=== PATIENT | male | born 1990 | race Caucasian/White ===

== ENCOUNTER 2016-06-11 23:32 | Emergency (ER) | payer OTHER, MEDICAID | END 2016-06-12 04:34 | disposition home or self-care (01) | DX: M79.662 Pain in left lower leg (principal); F17.200 Nicotine dependence, unspecified, uncomplicated; Z79.82 Long term (current) use of aspirin ==

== ENCOUNTER 2016-06-12 | Emergency (ER) | payer OTHER, MEDICAID | END 2016-06-12 19:30 | disposition left against medical advice (07) | DX: Z53.21 Procedure and treatment not carried out due to patient leaving prior to being seen by health care provider (principal) ==

== ENCOUNTER 2016-09-01 20:30 | Emergency (ER) | payer OTHER, MEDICAID | END 2016-09-01 23:04 | disposition home or self-care (01) | DX: I10 Essential (primary) hypertension (principal); R06.00 Dyspnea, unspecified; F17.200 Nicotine dependence, unspecified, uncomplicated; Z79.82 Long term (current) use of aspirin ==

== ENCOUNTER 2016-09-09 22:02 | Outpatient (CLI) | payer OTHER, MEDICAID | END 2016-09-09 22:03 | disposition home or self-care (01) | DX: R07.89 Other chest pain (principal) ==

== ENCOUNTER 2016-09-09 22:52 | Emergency (ER) | payer OTHER, MEDICAID ==
[2016-09-09] MEDS ORDERED: LORazepam 0.5 MG TABLET ONE (23:26)
[2016-09-09] MEDS: LORazepam 0.5 MG TABLET PO STA (23:28)
--- NOTE | 2016-09-09 23:31 | ED Physician Documentation ---
History of Present Illness - Stated complaint Stated Complaint: CHEST PX - Chief complaint Chief Complaint: Cardiac - History obtained from History obtained from: Patient, Friend - History of Present Illness Timing: How many days ago (3) - Additonal information Additional information: 26 y/o male is a heavy regular drinker and he stopped about 3 days ago. He is having trouble with a markedly elevated blood pressure. Review of Systems Constitutional: denies: Fever, Chills, Myalgias Eyes: denies: Decreased vision Ears: denies: Ear pain Nose: reports: Rhinorrhea / runny nose, Congestion Throat: denies: Dental pain / toothache Cardiac: denies: Chest pain / pressure, Palpitations Respiratory: reports: Cough (daily in am) GI: denies: Abdominal Pain, Nausea, Vomiting : denies: Dysuria, Frequency Skin: denies: Rash Musculoskeletal: denies: Neck pain, Back pain, Extremity pain Neurologic: reports: Headache. denies: Generalized weakness, Focal weakness, Numbness, Confused, Altered mental status, Head injury, LOC PD PAST MEDICAL HISTORY - Past Medical History Cardiovascular: Angina, Other Respiratory: None Neuro: None Endocrine/Autoimmune: None GI: None : None HEENT: Chronic vision loss Psych: None Musculoskeletal: None, Other Derm: None Other Past Medical History: costalcondritis - Past Surgical History Past Surgical History: No - Present Medications Home Medications: Ambulatory Orders Medication Instructions Recorded Confirmed Ibuprofen [Motrin] 400 mg PO Q6H PRN #30 tablet 03/25/16 09/09/16 Lorazepam [Ativan] 1 mg PO Q6HR PRN #20 tablet 09/10/16 - Allergies Allergies/Adverse Reactions: Allergies Allergy/AdvReac Type Severity Reaction Status Date / Time No Known Drug Allergies Allergy Verified 06/11/16 23:51 - Social History Does the pt smoke?: No Smoking Status: Smoker current status unk Does the pt drink ETOH?: Yes Does the pt have substance abuse?: No - Immunizations Immunizations are current?: No - POLST Patient has POLST: No PD ED PE NORMAL - Vitals Vital signs reviewed: Yes (hypertensive ) - General General: Alert and oriented X 3, No acute distress, Well developed/nourished - HEENT HEENT: Atraumatic, PERRL, EOMI, Other (Both TM's are inflammed with rounding of the landmarks. 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 There is clearly sinus but there is some baseline "shaking" ) - Labs Labs: Laboratory Tests 09/09/16 09/09/16 09/09/16 23:25 23:56 23:56 WBC 6.5 RBC 4.24 L Hgb 13.5 L Hct 38.7 L MCV 91.1 MCH 31.8 H MCHC 34.9 RDW 12.8 Plt Count 197 MPV 8.2 Neut # 3.9 Lymph # 1.6 [place] # 0.7 Eos # 0.2 Baso # 0.2 H Absolute Nucleated RBC 0.00 Nucleated RBCs 0.1 Sodium 135 Potassium 3.8 Chloride 101 Carbon Dioxide 24 Anion Gap 10.0 BUN 18 Creatinine 0.8 Estimated GFR (MDRD) 117 Glucose 102 H Calcium 8.8 Total Bilirubin 0.6 AST 52 H ALT 58 Alkaline Phosphatase 55 Troponin I Total Protein 7.8 Albumin 4.4 Globulin 3.4 Albumin/Globulin Ratio 1.3 Lipase 18 L Ethyl Alcohol < 5.0 09/09/16 23:56 WBC RBC Hgb Hct MCV MCH MCHC RDW Plt Count MPV Neut # Lymph # [place] # Eos # Baso # Absolute Nucleated RBC Nucleated RBCs Sodium Potassium Chloride Carbon Dioxide Anion Gap BUN Creatinine Estimated GFR (MDRD) Glucose Calcium Total Bilirubin AST ALT Alkaline Phosphatase Troponin I < 0.04 Total Protein Albumin Globulin Albumin/Globulin Ratio Lipase Ethyl Alcohol Procedures - IVC sono (time) 2320 Bedside IVC sono: IVC measures (cm) (1.76), Euvolemia PD MEDICAL DECISION MAKING - ED course Complexity details: reviewed old records, reviewed results, re-evaluated patient , considered differential, d/w patient, d/w family ED course: 26 y/o male with concerns about hypertension is going through alcohol withdrawal , has marked hypertension and he is given PO ativan. He has history that all adds up to regular alcohol use resulting in elevated blood pressure related to withdrawal. He does not have the shakes and looking at him in the ED this evening he looks normal with a high blood pressure. He does have daily symptoms when he returns from work with flush face and feeling uneasy and having symptoms resolve with drinking. He is wondering if his blood pressure elevation is just something he needs to treat. His blood pressure improves dramatically with the ativan and I have discussed with him the nature of alcohol withdrawal and timing of symptoms. He is still hypertensive and I have discussed with this 26 y/o male lifestyle modifications prior to treatment. Departure - Departure Disposition: 01 Home, Self Care Clinical Impression: Alcohol withdrawal Qualifiers: Complication of substance-induced condition: uncomplicated Qualified Code(s): F10.230 - Alcohol dependence with withdrawal, uncomplicated Hypertension Qualifiers: Hypertension type: other secondary hypertension Qualified Code(s): I15.8 - Other secondary hypertension Instructions: ED Withdrawal Alcohol, ED Hypertension Poss Follow-Up: Joe Renteria MD [Primary Care Provider] - Prescriptions: Lorazepam [Ativan] 1 mg PO Q6HR PRN #20 tablet PRN Reason: aggitation/withdrawal symptoms
[2016-09-10 00:12] LABS: BASOPHILS # (AUTO) 0.2 10^3/uL (0.0-0.1); BASOPHILS % (AUTO) 3.4 %; EOSINOPHILS # (AUTO) 0.2 10^3/uL (0.0-0.7); EOSINOPHILS % (AUTO) 2.4 %; HCT - HEMATOCRIT 38.7 % (42.0-52.0); HGB - HEMOGLOBIN 13.5 g/dL (14.0-18.0); LYMPHOCYTES # (AUTO) 1.6 10^3/uL (1.5-3.5); LYMPHOCYTES % (AUTO) 23.7 %; MEAN CORPUSCULAR HEMOGLOBIN 31.8 pg (27.0-31.0); MEAN CORPUSCULAR HGB CONC 34.9 g/dL (32.0-36.0); MEAN CORPUSCULAR VOLUME 91.1 fL (80.0-94.0); MEAN PLATELET VOLUME 8.2 fL (7.4-11.4); MONOCYTES # (AUTO) 0.7 10^3/uL (0.0-1.0); MONOCYTES % (AUTO) 10.6 %; NEUTROPHILS # (AUTO) 3.9 10^3/uL (1.5-6.6); NEUTROPHILS % (AUTO) 59.9 %; NUCLEATED RED BLOOD CELLS AUTO 0.1 /100WBC; RED BLOOD COUNT 4.24 10^6/uL (4.70-6.10); RED CELL DISTRIBUTION WIDTH 12.8 % (12.0-15.0); UNCORRECTED WHITE BLOOD COUNT 6.5 x10^3/uL; WHITE BLOOD COUNT 6.5 x10^3/uL (4.8-10.8)
[2016-09-10 00:15] LABS: ALBUMIN/GLOBULIN RATIO 1.3 (1.0-2.2); BILIRUBIN,TOTAL 0.6 mg/dL (0.2-1.0); CALCIUM 8.8 mg/dL (8.5-10.3); CREATININE 0.8 mg/dL (0.6-1.2); POTASSIUM 3.8 mmol/L (3.5-5.0); TOTAL PROTEIN 7.8 g/dL (6.7-8.2)
[2016-09-10 00:48] VITALS: BP 155/86
== END 2016-09-10 00:48 | disposition home or self-care (01) ==
LOC: ED 22:52
DX: F10.239 Alcohol dependence with withdrawal, unspecified (principal); I15.8 Other secondary hypertension; F17.200 Nicotine dependence, unspecified, uncomplicated
CPT/HCPCS: 36415; 80053; 80061; 80320; 81001; 83690; 84443; 84484; 85025; 93005; 93010; 99283; 99284

== ENCOUNTER 2016-09-10 08:23 | Outpatient (CLI) | payer OTHER, MEDICAID | END 2016-09-10 08:24 | disposition home or self-care (01) | DX: R51 Headache (principal); I10 Essential (primary) hypertension ==

== ENCOUNTER 2016-11-19 11:28 | Outpatient (CLI) | payer OTHER, MEDICAID ==
--- NOTE | 2016-11-19 13:14 | XRAY Report ---
TWO-VIEW CHEST: 11/19/2016 CLINICAL INDICATION: Chest pain, dyspnea, cough. COMPARISON: 09/01/2016 FINDINGS: Frontal and lateral views of the chest demonstrate a normal cardiac silhouette. The lungs are clear. No effusion or pneumothorax is present. IMPRESSION: NORMAL CHEST. JOB #: [id number] EXT JOB #:[id number]
== END 2016-11-19 11:29 | disposition home or self-care (01) ==
LOC: DI 11:28
PROVIDERS: ATTEND Internal Medicine
DX: R07.9 Chest pain, unspecified (principal); R06.00 Dyspnea, unspecified
CPT/HCPCS: 71020

== ENCOUNTER 2017-01-11 08:50 | Emergency (ER) | payer MEDICAID, OTHER ==
[2017-01-11] MEDS ORDERED: LORazepam 0.5 MG TABLET PO STA (09:49)
[2017-01-11] MEDS ORDERED: LORazepam 0.5 MG TABLET ONE (09:56)
--- NOTE | 2017-01-11 10:20 | ED Physician Documentation ---
History of Present Illness - Stated complaint Stated Complaint: DIZZY,SOA - Chief complaint Chief Complaint: General - History obtained from History obtained from: Patient (,) - Additonal information Additional information: Patient is a 26-year-old man with history of alcohol dependence who has had today what sounds like a panic attack. He is his normal state of health when he is driving back in a vehicle. He felt lightheaded, had a dry mouth and felt numbness and tingly all over. The patient is admitted alcoholic and is trying to cut down on his drinking. In addition he has been out of his Ativan for a couple of days. Denies any chest pain or shortness of breath. He has not had any abdominal pain, nausea, vomiting, constipation or diarrhea. Review of systems: For pertinent positive and negatives in the review of systems please see the history of present illness, otherwise all other systems have been reviewed and are negative. Dragon disclaimer: Parts of this medical record were created using voice recognition technology. Because of the inherent limitations of this system, occasional same sounding word substitutions do occur and persist despite proofreading. Please read the document for context. Review of Systems Constitutional: denies: Fever, Chills Eyes: denies: Loss of vision Ears: denies: Loss of hearing Neurologic: denies: Generalized weakness, Focal weakness, Difficulty speaking, Near syncope PD PAST MEDICAL HISTORY - Past Medical History Cardiovascular: Angina, Other Respiratory: Asthma Neuro: None Endocrine/Autoimmune: None GI: None : None HEENT: Chronic vision loss Psych: None Musculoskeletal: None, Other Derm: None - Past Surgical History Past Surgical History: No - Present Medications Home Medications: Ambulatory Orders Medication Instructions Recorded Confirmed Ibuprofen [Motrin] 400 mg PO Q6H PRN #30 tablet 03/25/16 01/11/17 Lorazepam [Ativan] 1 mg PO Q6HR PRN #20 tablet 09/10/16 01/11/17 Lorazepam [Ativan] 1 mg PO TID #9 tablet 01/11/17 - Allergies Allergies/Adverse Reactions: Allergies Allergy/AdvReac Type Severity Reaction Status Date / Time No Known Drug Allergies Allergy Verified 06/11/16 23:51 - Social History Does the pt smoke?: No Smoking Status: Smoker current status unk Does the pt drink ETOH?: Yes Does the pt have substance abuse?: No - Immunizations Immunizations are current?: No - POLST Patient has POLST: No PD ED PE NORMAL - General General: Alert and oriented X 3, No acute distress, Well developed/nourished, Other - HEENT HEENT: Atraumatic (Large habitus male who is slightly tremulous and anxious in appearance) - Cardiac Cardiac: RRR, No murmur, No gallop, No rub - Respiratory Respiratory: No respiratory distress, Clear bilaterally - Abdomen Abdomen: Normal bowel sounds, Soft, Non tender - Derm Derm: Normal color - Extremities Extremities: No deformity, No tenderness to palpate, Normal ROM s pain, No edema - Neuro Neuro: Alert and oriented X 3, 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 Despite this he is still maintaining a job. I a brief intervention I did do a brief alcohol intervention on the patient and recommended several outpatient resources including AA. His symptoms today are consistent I think with an acute panic attack. From physical standpoint is a healthy young man with a normal cardiac, pulmonary and neurologic exam. I have written him a small amount of Ativan and he will follow back up with his primary care physician and also will consider methods to address his primary problem with his which is alcoholism. Disposition: To home new Clinical impression: 1. Acute panic attack 2. Chronic alcohol dependence Departure - Departure Disposition: 01 Home, Self Care Clinical Impression: Panic anxiety syndrome Condition: Good Instructions: ED Panic Attack Prescriptions: Lorazepam [Ativan] 1 mg PO TID #9 tablet
[2017-01-11 10:39] VITALS: BP 153/116
== END 2017-01-11 10:59 | disposition home or self-care (01) ==
LOC: ED 08:50
DX: F41.0 Panic disorder [episodic paroxysmal anxiety] (principal); F10.20 Alcohol dependence, uncomplicated; F17.200 Nicotine dependence, unspecified, uncomplicated
CPT/HCPCS: 99283; A9270

== ENCOUNTER 2017-07-26 18:18 | Outpatient (CLI) | payer OTHER, MEDICAID | END 2017-07-26 18:19 | disposition EMS.NT | LOC: EMS 18:18 | PROVIDERS: ATTEND Surgery | DX: R07.9 Chest pain, unspecified (principal) ==